=== PATIENT | female | born 1960 | race African-American/Black ===

== ENCOUNTER 2024-12-21 08:47 | Outpatient (CLI) | payer MEDICARE | END 2024-12-21 08:48 | disposition home or self-care (01) | LOC: SCSMRI 08:47 | PROVIDERS: ATTEND Family Medicine | DX: M67.911 Unspecified disorder of synovium and tendon, right shoulder (principal); M75.111 Incomplete rotator cuff tear or rupture of right shoulder, not specified as traumatic; M19.011 Primary osteoarthritis, right shoulder ==